=== PATIENT | female | born 1990 | race Caucasian/White ===

== ENCOUNTER 2018-03-30 17:16 | Emergency (ER) | payer BC ==
[~2018-03-30] VITALS: Ht 165.1 cm; Wt 100.0 kg
[2018-03-30 17:37] VITALS: BP 159/81; PULSE 77; RESP 18; TEMP 98.8; O2SAT 98
--- NOTE | 2018-03-30 19:31 | PD ---
HPI Chief Complaint: Abdominal Pain Time Seen by Provider: 19:10 Travel History International Travel<30 days: No Contact w/Intl Traveler<30days: No Traveled to known affect area: No History of Present Illness HPI 27-year-old female presents emergency department with 3 week history of chronic recurrent nausea, with occasional vomiting, and lower abdominal cramping. Patient states she was seen at the [facility] yesterday, and ultrasound was scheduled, and pelvic exam performed showing no obvious signs of PID or STD. Patient was given no medication for nausea or pain. She states she is having difficulty working secondary to her current clinical condition. Patient denies dysuria, flank pain, vaginal discharge, and recently had a menstrual cycle ending last week. Patient has IUD in place. Patient denies fever, chills, or other symptoms. Pain is 7-8 out of 10. She has no known drug allergies PFSH Past Medical History ?: Not LMP: 03/11/18 Social History Alcohol Use: No Tobacco Use: No Substance Use: No Allergies-Medications (Allergen,Severity, Reaction): Coded Allergies: No Known Allergies (Unverified , 03/30/18) Reported Meds & Prescriptions Reported Meds & Active Scripts Active No Active Prescriptions or Reported Medications Review of Systems Except as stated in HPI: all other systems reviewed are Neg General / Constitutional: No: Fever, Chills Eyes: No: Visual changes HENT: No: Headaches Cardiovascular: No: Chest Pain or Discomfort Respiratory: No: Shortness of Breath Gastrointestinal: No: Abdominal Pain Genitourinary: Positive: Pelvic Pain, No: Urgency, Frequency, Dysuria, Flank Pain, Discharge, Dysmenorrhea, Vaginal Bleeding (Cramping) Musculoskeletal: No: Pain Skin: No Rash Neurologic: No: Weakness Psychiatric: No: Depression Endocrine: No: Polydipsia Hematologic/Lymphatic: No: Easy Bruising Physical Exam Narrative GENERAL: Patient appears in mild distress per SKIN: Warm and dry. Normal color. Normal turgor. HEAD: Atraumatic. Normocephalic. EYES: Pupils equal and round. No scleral icterus. No injection or drainage. ENT: No nasal bleeding or discharge. Mucous membranes pink and moist. Pharynx is clear. Airways patent. NECK: Trachea midline. No JVD. Supple and nontender CARDIOVASCULAR: Regular rate and rhythm. RESPIRATORY: No accessory muscle use. Clear to auscultation. Breath sounds equal bilaterally. GASTROINTESTINAL: Abdomen soft, mild nonspecific lower abdominal tenderness, nondistended. No point tenderness or rebound. No guarding. Hepatic and splenic margins not palpable. No CVA tenderness. MUSCULOSKELETAL: Extremities without clubbing, cyanosis, or edema. No obvious deformities. NEUROLOGICAL: Awake and alert. No obvious cranial nerve deficits. Motor grossly within normal limits. Five out of 5 muscle strength in the arms and legs. Normal speech. PSYCHIATRIC: Appropriate mood and affect; insight and judgment normal. Data Data Last Documented VS Vital Signs Date Time Temp Pulse Resp B/P (MAP) Pulse Ox O2 Delivery O2 Flow Rate FiO2 03/30/18 17:37 98.8 77 18 159/81 (107) 98 Orders Orders Complete Blood Count With Diff (03/30/18 19:19) Comprehensive Metabolic Panel (03/30/18 19:19) Us Pelvis Comp Litigator/Non-Preg (03/30/18 ) Urinalysis - C+S If Indicated (03/30/18 19:19) Ed Urine Pregnancytest Poc (03/30/18 19:19) Labs Laboratory Tests Test 03/30/18 19:45 03/30/18 19:55 Urine Color LIGHT-YELLOW Urine Turbidity CLEAR Urine pH 5.5 Urine Specific [place] 1.008 Urine Protein NEG mg/dL Urine Glucose (UA) NEG mg/dL Urine Ketones TRACE mg/dL Urine Occult Blood NEG Urine Nitrite NEG Urine Bilirubin NEG Urine Urobilinogen LESS THAN 2.0 MG/DL Urine Leukocyte Esterase NEG Urine WBC 1 /hpf Urine Squamous Epithelial Cells 2 /hpf Microscopic Urinalysis Comment CULT NOT INDICATED White Blood Count 11.4 TH/MM3 Red Blood Count 4.86 MIL/MM3 Hemoglobin 14.7 GM/DL Hematocrit 44.1 % Mean Corpuscular Volume 90.7 FL Mean Corpuscular Hemoglobin 30.3 PG Mean Corpuscular Hemoglobin Concent 33.4 % Red Cell Distribution Width 12.8 % Platelet Count 248 TH/MM3 Mean Platelet Volume 8.8 FL Neutrophils (%) (Auto) 70.2 % Lymphocytes (%) (Auto) 21.4 % Monocytes (%) (Auto) 6.3 % Eosinophils (%) (Auto) 1.7 % Basophils (%) (Auto) 0.4 % Neutrophils # (Auto) 8.0 TH/MM3 Lymphocytes # (Auto) 2.4 TH/MM3 Monocytes # (Auto) 0.7 TH/MM3 Eosinophils # (Auto) 0.2 TH/MM3 Basophils # (Auto) 0.1 TH/MM3 CBC Comment DIFF FINAL Differential Comment Blood Urea Nitrogen 11 MG/DL Creatinine 0.81 MG/DL Random Glucose 81 MG/DL Total Protein 8.7 GM/DL Albumin 4.6 GM/DL Calcium Level 9.1 MG/DL Alkaline Phosphatase 89 U/L Aspartate Amino Transf (AST/SGOT) 16 U/L Alanine Aminotransferase (ALT/SGPT) 22 U/L Total Bilirubin 0.6 MG/DL Sodium Level 141 MEQ/L Potassium Level 3.5 MEQ/L Chloride Level 107 MEQ/L Carbon Dioxide Level 24.2 MEQ/L Anion Gap 10 MEQ/L Estimat Glomerular Filtration Rate 86 ML/MIN [facility] Medical Decision Making Medical Screen Exam Complete: Yes Emergency Medical Condition: Yes Differential Diagnosis Chronic nausea and vomiting. Possible PCOS. Urinary tract infection. Anxiety Narrative Course Patient appears medically stable at time of exam. Labs ordered including CBC, CMP, urinalysis, urine . Patient given Zofran 4 mg ODT. Pelvic ultrasound is ordered. CBC shows slight leukocytosis of 11.4, CMP was unremarkable. Urinalysis is unremarkable. Urine patency test is negative. 2100 hrs., pelvic ultrasound is pending. She will can determine final disposition. Scripts No Active Prescriptions or Reported Meds Condition: Stable Stephan Campos March 30, 2018 19:31
[2018-03-30 20:28] LABS: BASOPHIL # 0.1 TH/MM3 (0-0.2); BASOPHIL % 0.4 % (0.0-2.0); EOSINOPHIL # 0.2 TH/MM3 (0-0.4); EOSINOPHIL % 1.7 % (0.0-4.0); HEMATOCRIT 44.1 % (35.0-46.0); HEMOGLOBIN 14.7 GM/DL (11.6-15.3); LYMPH % 21.4 % (9.0-44.0); LYMPHOCYTE # 2.4 TH/MM3 (1.0-4.8); MEAN CELL VOLUME 90.7 FL (80.0-100.0); MEAN CORPUSCULAR HEMOGLOBIN 30.3 PG (27.0-34.0); MEAN CORPUSCULAR HGB CONC 33.4 % (32.0-36.0); MEAN PLATELET VOLUME 8.8 FL (7.0-11.0); MONO % 6.3 % (0.0-8.0); MONOCYTE # 0.7 TH/MM3 (0-0.9); NEUT % 70.2 % (16.0-70.0); PLATELET COUNT 248 TH/MM3 (150-450); RED BLOOD COUNT 4.86 MIL/MM3 (4.00-5.30); RED CELL DISTRIBUTION WIDTH 12.8 % (11.6-17.2); WHITE BLOOD COUNT 11.4 TH/MM3 (4.0-11.0)
[2018-03-30 20:36] LABS: BILIRUBIN, URINE NEG (NEG); BLOOD, URINE NEG (NEG); GLUCOSE,URINE NEG (NEG); KETONE, URINE TRACE mg/dL (NEG); NITRITE,URINE NEG (NEG); PH, URINE 5.5 (5.0-8.5); SQUAMOUS EPITHELIAL CELL URINE 2 /hpf (0-5); URINE COLOR LIGHT-YELLOW (YELLW/STRAW); URINE LEUKOCYTE ESTERASE NEG (NEG)
[2018-03-30 20:37] LABS: ALBUMIN 4.6 GM/DL (3.4-5.0); AST (GOT) 16 U/L (15-37); BICARBONATE 24.2 MEQ/L (21.0-32.0); BLOOD UREA NITROGEN 11 MG/DL (7-18); CALCIUM 9.1 MG/DL (8.5-10.1); CHLORIDE 107 MEQ/L (98-107); CREATININE 0.81 MG/DL (0.50-1.00); GLOMERULAR FILTRATION RATE 86 ML/MIN (>89); GLUCOSE,RANDOM 81 MG/DL (74-106); SODIUM (NA) 141 MEQ/L (136-145)
[2018-03-30 20:38] LABS: ALT (GPT) 22 U/L (10-53)
[2018-03-30 20:40] LABS: ALKALINE PHOSPHATASE 89 U/L (45-117); TOTAL BILIRUBIN ADULT 0.6 MG/DL (0.2-1.0); TOTAL PROTEIN 8.7 GM/DL (6.4-8.2)
--- NOTE | 2018-03-30 22:17 | RADRPT ---
EXAM DATE/TIME: 03/30/2018 21:25 [place] COMPARISON: No previous studies available for comparison. INDICATIONS : Lower abdominal pain x 3 weeks with nausea. MEDICAL HISTORY : Lower abdominal pain. SURGICAL HISTORY : IUD placement - 2013. ENCOUNTER: Initial ACUITY: 3 weeks PAIN SCORE: 2/10 LOCATION: Pelvis. MEASUREMENTS: UTERUS: 8.4 x 4.0 x 3.0 cm ENDOMETRIAL STRIPE: 5 mm RIGHT OVARY: 3.3 x 2.6 x 1.7 cm LEFT OVARY: 2.5 x 2.1 x 1.4 cm FINDINGS: UTERUS: The myometrium has homogeneous echotexture without mass. An IUD is noted within the endometrial canal . RIGHT OVARY: Ovary contains no mass or significant cystic lesion. LEFT OVARY: Ovary contains no mass or significant cystic lesion. MISCELLANEOUS: No free fluid. CONCLUSION: 1. No acute abnormality. 2. IUD. 3. Small follicular cysts bilaterally. Tyrell White Jr., MD on March 30, 2018 at 22:13 Board Certified Radiologist. This report was verified electronically.
--- NOTE | 2018-03-30 22:27 | PD ---
Physical Exam Date Seen by Provider: March 30, 2018 Time Seen by Provider: 22:27 Narrative Patient appears her resting comfortable in examination room. Data Data Last Documented VS Vital Signs Date Time Temp Pulse Resp B/P (MAP) Pulse Ox O2 Delivery O2 Flow Rate FiO2 03/30/18 17:37 98.8 77 18 159/81 (107) 98 Orders Orders Complete Blood Count With Diff (03/30/18 19:19) Comprehensive Metabolic Panel (03/30/18 19:19) Us Pelvis Comp [place]ble Helper/Non-Preg (03/30/18 ) Urinalysis - C+S If Indicated (03/30/18 19:19) Ed Urine Pregnancytest Poc (03/30/18 19:19) Ed Discharge Order (03/30/18 22:24) Labs Laboratory Tests Test 03/30/18 19:45 03/30/18 19:55 Urine Color LIGHT-YELLOW Urine Turbidity CLEAR Urine pH 5.5 Urine Specific [place] 1.008 Urine Protein NEG mg/dL Urine Glucose (UA) NEG mg/dL Urine Ketones TRACE mg/dL Urine Occult Blood NEG Urine Nitrite NEG Urine Bilirubin NEG Urine Urobilinogen LESS THAN 2.0 MG/DL Urine Leukocyte Esterase NEG Urine WBC 1 /hpf Urine Squamous Epithelial Cells 2 /hpf Microscopic Urinalysis Comment CULT NOT INDICATED White Blood Count 11.4 TH/MM3 Red Blood Count 4.86 MIL/MM3 Hemoglobin 14.7 GM/DL Hematocrit 44.1 % Mean Corpuscular Volume 90.7 FL Mean Corpuscular Hemoglobin 30.3 PG Mean Corpuscular Hemoglobin Concent 33.4 % Red Cell Distribution Width 12.8 % Platelet Count 248 TH/MM3 Mean Platelet Volume 8.8 FL Neutrophils (%) (Auto) 70.2 % Lymphocytes (%) (Auto) 21.4 % Monocytes (%) (Auto) 6.3 % Eosinophils (%) (Auto) 1.7 % Basophils (%) (Auto) 0.4 % Neutrophils # (Auto) 8.0 TH/MM3 Lymphocytes # (Auto) 2.4 TH/MM3 Monocytes # (Auto) 0.7 TH/MM3 Eosinophils # (Auto) 0.2 TH/MM3 Basophils # (Auto) 0.1 TH/MM3 CBC Comment DIFF FINAL Differential Comment Blood Urea Nitrogen 11 MG/DL Creatinine 0.81 MG/DL Random Glucose 81 MG/DL Total Protein 8.7 GM/DL Albumin 4.6 GM/DL Calcium Level 9.1 MG/DL Alkaline Phosphatase 89 U/L Aspartate Amino Transf (AST/SGOT) 16 U/L Alanine Aminotransferase (ALT/SGPT) 22 U/L Total Bilirubin 0.6 MG/DL Sodium Level 141 MEQ/L Potassium Level 3.5 MEQ/L Chloride Level 107 MEQ/L Carbon Dioxide Level 24.2 MEQ/L Anion Gap 10 MEQ/L Estimat Glomerular Filtration Rate 86 ML/MIN [facility] Medical Record Reviewed: Yes Supervised Visit with GERMAN: No Interpretation(s) CBC & BMP Diagram 03/30/18 19:55 Total Protein 8.7 H, Albumin 4.6, Calcium Level 9.1, Alkaline Phosphatase 89, Aspartate Amino Transf (AST/SGOT) 16, Alanine Aminotransferase (ALT/SGPT) 22, Total Bilirubin 0.6 Last 24 hours Impressions Pelvis Ultrasound 03/30/18 0000 Signed Impressions: Service Date/Time: Friday, March 30, 2018 21:25 - CONCLUSION: 1. No acute abnormality. 2. IUD. 3. Small follicular cysts bilaterally. Tyrell White Jr., MD Differential Diagnosis . Narrative Course I was asked to discharge the patient after her ultrasound. Her ultrasound showed no acute intra-or pelvic process. Patient is given a copy of her labs to take home. She is given a prescription for Zofran and diclofenac. Diagnosis Primary Impression: Pelvic pain Additional Impression: Nausea Patient Instructions: General Instructions Additional Instruction: Rest. Increase fluids. Zofran for nausea. Diclofenac for pain. Follow-up with your core blower as scheduled. Return to the ER if any problems. Med/Other Pt SpecificInfo: Prescription(s) given Scripts No Active Prescriptions or Reported Meds Disposition: 01 DISCHARGE HOME Condition: Stable Dionicio Urban March 30, 2018 22:27
[2018-03-30] MEDS ORDERED: DICL75TA PO (22:34)
[2018-03-30] MEDS ORDERED: ZOFR4TAB3 SL (22:34)
== END 2018-03-30 22:57 | disposition home or self-care (01) ==
LOC: NEPD 17:16
DX: R10.2 Pelvic and perineal pain (principal); R11.2 Nausea with vomiting, unspecified
CPT/HCPCS: 76856; 80053; 81001; 84703; 85025; 99284